=== PATIENT | male | born 1930 | race Hispanic/Latino ===

== ENCOUNTER 2016-12-09 15:08 | Inpatient (IN) | payer MEDICARE, OTHER ==
[2016-12-09] MEDS ORDERED: TYLENOL ONE (15:19)
[2016-12-09] MEDS ORDERED: TYLENOL PO ONE (15:20)
[2016-12-09 16:39] LABS: Basophils % (Auto) 0.3 % (0.0-1.8); Hematocrit 44.3 % (35.5-45.6); Hemoglobin 14.9 gm/dl (11.8-15.2); Mean Corpuscular HGB Conc 34 % (32-34); Mean Corpuscular Hemoglobin 31 pg (28-32); Mean Corpuscular Volume 91 fl (84-94); Red Blood Count 4.86 M/mm3 (3.65-5.03); Red Cell Distribution Width 14.2 % (13.2-15.2); White Blood Count 3.7 K/mm3 (4.5-11.0)
[2016-12-09 16:59] LABS: BUN/Creatinine Ratio 25.83; Potassium 3.8 mmol/L (3.6-5.0)
[2016-12-09 17:28] LABS: Platelet Count 87 K/mm3 (140-440)
--- NOTE | 2016-12-09 22:05 | Emergency Department Report ---
HPI - General Chief Complaint: Weakness Time Seen by Provider: 12/09/16 21:49 - HPI HPI: This is a 86-year-old male who presents to the emergency department with his sons with complaint of a 3-4 day history of progressively worsening weakness, decreased appetite, and falls. The patient presents with a very low- grade fever but there is been no complaints of any fever, chills. The patient is usually ambulatory but has not been able to walk since Friday due to the weakness. The patient himself has no complaints of any discomfort. He has a history of Parkinson's, diabetes, GERD, hypertension and has a defibrillator. The patient's primary care doctor and solar applications development engineer are both through the [facility]. No recent travel or sick contacts at home. No history of DC, CVA, PE /DVT. ED Past Medical Hx - Past Medical History Hx Hypertension: Yes Hx Diabetes: Yes Hx GERD: Yes Additional medical history: Parkinsons - Surgical History Hx Internal Defibrillator: Yes - Medications Home Medications: Home Medications Medication Instructions Recorded Confirmed Last Taken Type Carbidopa-Levo 25-100 mg Odt 12/10/16 Unknown History Cyanocobalamin 1,000 mg 12/10/16 Unknown History Docusate Sodium 12/10/16 Unknown History Lisinopril 12/10/16 Unknown History Metoprolol 12/10/16 Unknown History Omeprazole-Bicarb 20-1,100 Cap 12/10/16 Unknown History ED Review of Systems ROS: Stated complaint: WEAKNESS Other details as noted in HPI Comment: All other systems reviewed and negative Constitutional: fever, weakness Eyes: denies: eye pain, eye discharge, vision change ENT: denies: ear pain, throat pain Respiratory: denies: cough, shortness of breath, wheezing Cardiovascular: denies: chest pain, palpitations Genitourinary: denies: urgency, dysuria Musculoskeletal: denies: back pain, joint swelling, arthralgia Skin: denies: rash, lesions Neurological: weakness. denies: numbness, paresthesias Physical Exam - Physical Exam Vital Signs: Vital Signs 12/09/16 12/09/16 15:21 15:28 Temperature 100.4 F H Pulse Rate 65 Respiratory 20 20 Rate Blood Pressure 140/90 O2 Sat by Pulse 96 Oximetry Physical Exam: GENERAL: The patient is well-developed well-nourished. HEENT: Normocephalic. Atraumatic. Extraocular motions are intact. Patient has dry mucous membranes. Pupils equal reactive to light bilaterally. NECK: Supple. Trachea is midline. CHEST/LUNGS: Clear to auscultation. There is no respiratory distress noted. HEART/CARDIOVASCULAR: Regular. There is no tachycardia. There is no gallop rub or murmur. ABDOMEN: Abdomen is soft, nontender. Patient has normal bowel sounds. There is no abdominal distention. SKIN: There is no rash. There is no edema. There is no diaphoresis. NEURO: The patient is awake, alert, and oriented. The patient is cooperative. The patient has no focal neurologic deficits. The patient has normal speech. There is a left upper extremity tremor. MUSCULOSKELETAL: There is no tenderness or deformity. There is no evidence of acute injury. Patient displays some generalized weakness. ED Course Vital Signs 12/09/16 12/09/16 15:21 15:28 Temperature 100.4 F H Pulse Rate 65 Respiratory 20 20 Rate Blood Pressure 140/90 O2 Sat by Pulse 96 Oximetry ED Medical Decision Making - Lab Data Result diagrams: 12/09/16 16:26 12/09/16 16:26 - EKG Data -: EKG Interpreted by Vt EKG shows normal: sinus rhythm, axis, intervals (wide QRS), QRS complexes (LBBB) , ST-T waves Rate: normal - EKG Data When compared to previous EKG there are: changes noted (new LBBB, but previous EKG from 2010) Interpretation: other (wide QRS, LBBB) - Radiology Data Radiology results: report reviewed, image reviewed interpreted by me: Chest x-ray did not show any acute process. Heart is normal shape and size. No effusions. No pneumothorax. No signs of pneumonia seen. CT of the head without contrast shows involutional changes but otherwise no acute intracranial process. - Medical Decision Making 86-year-old male with history of Parkinson's presents to the emergency department after he began having weakness to the point where he could no longer walk, which she was able to do as of a few days ago. Patient's EKG did not show any signs of ST elevation DC but does show a left bundle-branch block, which was not there on his last EKG, however the last EKG was over 5 years ago. Patient's first troponin was elevated at 0.061 and went up to 0.064. It is only 2 times above normal range but may be a sign as to why the patient is having weakness as it could be NSTEMI versus other etiology. Patient does have a history of GI bleed so he was not started on any heparin at this time but was given an aspirin. Patient will be admitted to hospital for further evaluation and has been accepted for admission by the hospitalist, Dr. Mendez. - Differential Diagnosis DC, CVA, hypothyroidism, Parkinson's Critical Care Time: No Critical care attestation.: If time is entered above; I have spent that time in minutes in the direct care of this critically ill patient, excluding procedure time. ED Disposition Clinical Impression: Parkinson disease, Elevated troponin, Weakness, Inability to walk Disposition: OP ADMITTED IP TO THIS HOSP Is pt being admited?: Yes Does the pt Need Aspirin: Yes Condition: Stable Time of Disposition: 22:58
[2016-12-09] MEDS ORDERED: NACL 0.9% 1000 ML 1,000 ML IV ONE (22:11)
[2016-12-09] MEDS ORDERED: NACL 0.9% 500 ML 500 ML IV ONE (22:11)
--- NOTE | 2016-12-09 22:54 | Cat Scan Report ---
FINAL REPORT PROCEDURE: CT HEAD/BRAIN WO CON TECHNIQUE: Computerized tomography of the head was performed without contrast material. HISTORY: weakness COMPARISON: No prior studies are available for comparison. FINDINGS: Skull and scalp: Normal. Paranasal sinuses: Normal. Ventricles and subarachnoid spaces: There is advanced central and cortical atrophy. There is no hydrocephalus or asymmetry.. Cerebrum: No evidence of hemorrhage, acute infarction or mass . Cerebellum and brainstem: No evidence of hemorrhage, acute infarction or mass. Vasculature: There is calcified intracranial atherosclerosis.. Comments: There is chronic deep white matter ischemic gliosis.. IMPRESSION: There are chronic involutional changes. The there is no acute intracranial abnormality.
[2016-12-09] MEDS ORDERED: ECOTRIN PO ONE (22:59)
[2016-12-09] MEDS ORDERED: HEPARIN SUB-Q SCH (23:00)
[2016-12-10 05:11] LABS: Bacteria,Urine 1+ /HPF (Negative); Bilirubin,Urine NEG (Negative); Blood,Urine LG (Negative); Ketones,Urine NEG (Negative); Leukocyte Esterase,Urine TR (Negative); Mucus,Urine FEW /HPF; Nitrite,Urine NEG (Negative)
[2016-12-10 05:12] LABS: RBC,Urine > 182.0 /HPF (0.0-6.0)
[2016-12-10] MEDS ORDERED: SODIUM CHLORIDE FLUSH SYRINGE 10 ML IV PRN (06:34)
--- NOTE | 2016-12-10 06:34 | Event Note ---
Date: 12/09/16 NSTEMI HTN UTI ARF Parkinson's disease
[2016-12-10] MEDS ORDERED: NON-FORMULARY (Metoprolol 50 MG) PO SCH (06:45)
[2016-12-10 08:17] LABS: Creatine Kinase MB 3.8 ng/mL (0.0-4.0)
--- NOTE | 2016-12-10 08:19 | XRay Report ---
AP chest x-ray. Findings: The heart is mildly enlarged with normal pulmonary vascularity. The lungs are clear. There is no pleural fluid. A cardiac pacemaker is noted. Arthritic changes are seen in the right shoulder joint and a.c. joint. Impression: Cardiomegaly with no acute findings.
[2016-12-10] MEDS ORDERED: LEXISCAN IV ONE ×2 (09:04→09:08)
[2016-12-10] MEDS ORDERED: NON-FORMULARY (Lisinopril 10 MG) PO SCH (10:00)
[2016-12-10] MEDS ORDERED: LOVENOX SUB-Q SCH (10:00)
--- NOTE | 2016-12-10 11:05 | Admit Criteria Form ---
Admission Criteria Documentation: MYOCARDIAL INFARCTION Clinical Indications for Admission to Inpatient Care (Place 'X' for any and all applicable criteria): Admission is indicated for ANY ONE of the following (1)(2)(3)(4): [ ]I. Acute IN [X]II. Contraindications and/or Inappropriate clinical situations for Observational Care in patients with Myocardial Infarction, when ANY ONE of the following is required: [ ]a) Patient with High risk of cardiac embolism (e.g, patients with previous cardiac embolism, LVEF < 40%, age >75 and patients with prosthetic valve) 18 [X]b) Patient with Moderate risk including DM patient, CAD and patient aged 65-75 18 [X]c) Patient with any change in cardiac biomarker especially troponin should be managed as high risk in an inpatient setting 19 [ ]d) Physician judgement irrespective of ECG and other diagnostic findings 20 [X]III.General contraindications and/or Inappropriate clinical situations for Observational Care in patients with Myocardial Infarction, when ANY ONE of the following is required: [X]a) Prediction of prolongation of LOS based on ANY ONE of the following may be considered as a contraindication for observational care 2, 3, 4, 5, 6, 7, 8, 9, 10, 11 [X]i) Age > 65 yrs. [ ]ii) Patient arriving by ambulance [ ]iii) Patient with high acuity [ ]iv) Patient requiring vital sign monitoring [ ]v) Patient on IV medication [ ]b) Systolic blood pressures 180mmHg 3,12 [ ]c) Patient with altered mental status including delirium and other alteration of consciousness, (3) [ ]d) Patient whose discharge disposition will be to a snf home or rehabilitation home should not be managed in Emergency Department Observation Unit. CMS rule requires 3 days hospital stay before such placement. 3,13 [ ]e) Patient with failure to thrive due to broad array of etiologies 3 ,16,17 [ ]f) Inability to ambulate 3,14 Extended stay beyond goal length of stay may be needed for (1)(18)(20)(24)(25): [ ]a) Hemodynamic instability, persisting symptoms after intensive medical management, or recurring severe, prolonged symptoms [ ]b) Intravascular procedural complications such as acute vessel closure, stent thrombosis, stent malposition, or vessel dissection (26)(27)(28) [ ]c) Extravascular procedural complications such as retroperitoneal hematoma , pericardial effusion, or cardiac tamponade [ ]d) Entry site complications causing bleeding, hematoma or distal ischemia and requiring ongoing monitoring, surgical repair or surgical thrombectomy(29) [ ]e) Dangerous arrhythmia [ ]f) Complicated percutaneous coronary intervention (e.g., unsuccessful percutaneous coronary intervention or percutaneous coronary intervention of non- [place] vessel) [ ]g) Urgent or emergent surgery for complications of IN (e.g., ventricular rupture, valvular insufficiency) [ ]h) Surgical revascularization via coronary artery bypass graft [ ]i) Heart failure (e.g., pulmonary edema) [ ]j) Unstable pulmonary comorbidities, including COPD or pneumonia (31) [ ]k) Acute renal failure The original [employer] content created by [employer] has been revised. The portions of the content which have been revised are identified through the use of italic text or in bold, and [facility] has neither reviewed nor approved the modified material. All other unmodified content is copyright [facility] Please see references footnoted in the original [facility] edition 2016 Admission Criteria Met: Yes
[2016-12-10 12:49] LABS: Hematocrit 44.8 % (35.5-45.6)
[2016-12-10 12:55] LABS: INR 1.11 (0.87-1.13); Partial Thromboplastin Time 30.4 Sec. (24.2-36.6)
[2016-12-10] MEDS: NOVOLOG SUB-Q SCH ×4 (13:02→22:18)
[2016-12-10 13:17] LABS: Creatine Kinase MB 3.1 ng/mL (0.0-4.0)
[2016-12-10] MEDS: ZESTRIL PO SCH (13:49)
[2016-12-10] MEDS: ROCEPHIN/NS 2 GM/100 ML 2 GM/100 ML BAG IV SCH (13:50)
[2016-12-10] MEDS: LOPRESSOR PO SCH ×2 (13:50→21:40)
--- NOTE | 2016-12-10 15:01 | Consultation ---
History of Present Illness Consult date: 12/10/16 Requesting physician: CELESTE JENNINGS Consult reason: atrial fibrillation, elevated troponin Medications and Allergies Allergies Allergy/AdvReac Type Severity Reaction Status Date / Time No Known Allergies Allergy Unverified 12/09/16 15:33 Home Medications Medication Instructions Recorded Confirmed Last Taken Type Carbidopa-Levo 25-100 mg Odt 12/10/16 Unknown History Cyanocobalamin 1,000 mg 12/10/16 Unknown History Docusate Sodium 12/10/16 Unknown History Lisinopril 12/10/16 Unknown History Metoprolol 12/10/16 Unknown History Omeprazole-Bicarb 20-1,100 Cap 12/10/16 Unknown History Active Meds: Active Medications Ceftriaxone Sodium (Rocephin/Ns 2 Gm/100 Ml) 2 gm in 100 mls @ 200 mls/hr IV Q24HR ISAIAH PRN Reason: Protocol Last Admin: 12/10/16 13:50 Dose: 200 mls/hr Heparin Sodium/Sodium Chloride (Heparin/ 0.45% Nacl-25,000 Unit/500 Ml) 25,000 unit in 500 mls @ 20 mls/hr IV TITRATE ISAIAH; 1,000 UNITS/HR PRN Reason: Protocol Insulin Aspart (Novolog) 0 units SUB-Q ACHS ISAIAH PRN Reason: Protocol Last Admin: 12/10/16 13:02 Dose: Not Given Lisinopril (Zestril) 10 mg PO QDAY [facility] Last Admin: 12/10/16 13:49 Dose: 10 mg Metoprolol Tartrate (Lopressor) 50 mg PO Q12HR [facility] Last Admin: 12/10/16 13:50 Dose: 50 mg Sodium Chloride (Sodium Chloride Flush Syringe 10 Ml) 10 ml IV PRN PRN PRN Reason: LINE FLUSH Physical Examination Vital Signs Resp 20 12/09/16 15:21 Results 12/10/16 12:06 12/09/16 16:26 Cardiac Enzymes 12/10/16 12/10/16 Range/Units 06:58 12:06 CK-MB (CK-2) 3.8 3.1 (0.0-4.0) ng/mL Coagulation 12/10/16 Range/Units 12:06 PT 14.2 (12.2-14.9) Sec. INR 1.11 (0.87-1.13) APTT 30.4 (24.2-36.6) Sec. CBC 12/10/16 Range/Units 12:06 Hgb 15.0 (11.8-15.2) gm/dl Hct 44.8 (35.5-45.6) % Plt Count 79 L (140-440) K/mm3
[2016-12-10] MEDS ORDERED: APRESOLINE IV PRN (16:12)
--- NOTE | 2016-12-10 16:50 | Consultation ---
History of Present Illness Consult date: 12/10/16 Consult reason: elevated troponin History of present illness: This is an 86yr old male who presented with weakness and decreased appetite. Patient has a history of Parkinson's. He began having weakness 4 days ago and now no longer able to walk. Patient admitted for further workup and evaluation. Cardiac consultation requested for mild rise of troponin. Cardiac enzymes shows a CK of 2221 with a normal CK/MB of 3.1, consistent with acute rhabdomyolysis. Troponin of 0.05, mildly elevated. Patient denies chest pain and shortness of breath. There was no dizziness or syncope. Patient had a persantine stress thallium today with results pending. Patient is known to [facility] and sees Dr Jackman. He has a cardiac history nonischemic cardiomyopathy with an indwelling cardiac defibrillator in place. Routine COUNSELING CASE MANAGER-D interrogations have revealed normal device function with chronic BI-V pacing. No appropirate or inappropirate device therapies noted. His latest cardiac workup done 5 yrs ago. He underwent a cardiac cath that reports no significant coronary disease, ejection fraction 15%. Medications and Allergies Allergies Allergy/AdvReac Type Severity Reaction Status Date / Time No Known Allergies Allergy Unverified 12/09/16 15:33 Home Medications Medication Instructions Recorded Confirmed Last Taken Type Carbidopa-Levo 25-100 mg Odt 12/10/16 Unknown History Cyanocobalamin 1,000 mg 12/10/16 Unknown History Docusate Sodium 12/10/16 Unknown History Lisinopril 12/10/16 Unknown History Metoprolol 12/10/16 Unknown History Omeprazole-Bicarb 20-1,100 Cap 12/10/16 Unknown History Active Meds: Active Medications Ceftriaxone Sodium (Rocephin/Ns 2 Gm/100 Ml) 2 gm in 100 mls @ 200 mls/hr IV Q24HR ISAIAH PRN Reason: Protocol Last Admin: 12/10/16 13:50 Dose: 200 mls/hr Heparin Sodium/Sodium Chloride (Heparin/ 0.45% Nacl-25,000 Unit/500 Ml) 25,000 unit in 500 mls @ 20 mls/hr IV TITRATE ISAIAH; 1,000 UNITS/HR PRN Reason: Protocol Insulin Aspart (Novolog) 0 units SUB-Q ACHS ISAIAH PRN Reason: Protocol Last Admin: 12/10/16 15:58 Dose: Not Given Lisinopril (Zestril) 10 mg PO QDAY [facility] Last Admin: 12/10/16 13:49 Dose: 10 mg Metoprolol Tartrate (Lopressor) 50 mg PO Q12HR [facility] Last Admin: 12/10/16 13:50 Dose: 50 mg Sodium Chloride (Sodium Chloride Flush Syringe 10 Ml) 10 ml IV PRN PRN PRN Reason: LINE FLUSH Physical Examination Vital Signs Resp 12/09/16 15:21 General appearance: no acute distress HEENT: Positive: PERRL Neck: Positive: trachea midline Cardiac: Positive: Reg Rate and Rhythm Lungs: Positive: Decreased Breath Sounds Results 12/10/16 12:06 12/09/16 16:26 Cardiac Enzymes 12/10/16 12/10/16 Range/Units 06:58 12:06 CK-MB (CK-2) 3.8 3.1 (0.0-4.0) ng/mL Coagulation 12/10/16 Range/Units 12:06 PT 14.2 (12.2-14.9) Sec. INR 1.11 (0.87-1.13) APTT 30.4 (24.2-36.6) Sec. CBC 12/10/16 Range/Units 12:06 Hgb 15.0 (11.8-15.2) gm/dl Hct 44.8 (35.5-45.6) % Plt Count 79 L (140-440) K/mm3 Assessment and Plan Weakness -presenting complaint Rhabdomyolysis Mild rise of troponin, nonspecific thallium results pending Hx of Parkinson's disease Hx of Nonischemic cardiomyopathy EF 30-35% on echo 2012 Presence of AICD
[2016-12-10] MEDS: HEPARIN/ 0.45% NACL-25,000 UNIT/500 ML 25,000 UNIT/500 ML BAG IV SCH (17:14)
--- NOTE | 2016-12-10 20:09 | Progress Note ---
Assessment and Plan 1. Frequent falls: Likely secondary to worsening Parkinson's disease. 2. Rhabdomyolysis: Combination of Parkinson disease and 24's. 3. Dilated cardiomyopathy with ejection fraction of 20-25%. Had cardiac cath. He is ago that showed normal coronaries. Ejection fraction was 20 - 25%. Medical management per software quality analyst with aspirin and atorvastatin and lisinopril and spironolactone Commissioner for continuous 4 and because his disease 4. DVT prophylaxis with Lovenox and GI with Protonix. Subjective Date of service: 12/10/16 Principal diagnosis: frequent falls, nonischemic cardiomyopathy Interval history: Denies any chest pain or shortness of breath. No recent falls. Objective - Constitutional Vitals: Vital Signs - 12hr 12/10/16 12/10/16 12/10/16 09:14 09:40 09:41 Temperature Pulse Rate 102 H 96 H 104 H Pulse Rate [ Left] Respiratory Rate Blood Pressure 115/75 115/75 121/78 Blood Pressure [Left Arm] O2 Sat by Pulse Oximetry 12/10/16 12/10/16 12/10/16 09:42 09:43 09:44 Temperature Pulse Rate 100 H 93 H 101 H Pulse Rate [ Left] Respiratory Rate Blood Pressure 104/73 101/68 108/68 Blood Pressure [Left Arm] O2 Sat by Pulse Oximetry 12/10/16 12/10/16 12/10/16 12:40 13:49 13:50 Temperature 98.2 F Pulse Rate 90 Pulse Rate [ 90 Left] Respiratory 18 Rate Blood Pressure 158/60 158/60 Blood Pressure 158/60 [Left Arm] O2 Sat by Pulse 97 Oximetry 12/10/16 16:31 Temperature 98.5 F Pulse Rate Pulse Rate [ 90 Left] Respiratory 18 Rate Blood Pressure Blood Pressure 143/83 [Left Arm] O2 Sat by Pulse 97 Oximetry General appearance: Present: no acute distress - EENT Eyes: PERRL, EOM intact ENT: hearing intact, clear oral mucosa Ears: bilateral: normal - Neck Neck: supple, normal ROM - Respiratory Respiratory effort: normal Respiratory: bilateral: diminished - Cardiovascular Rhythm: regular Heart Sounds: Present: S1 & S2. Absent: gallop, rub Extremities: pulses intact, No edema, normal color, Full ROM - Gastrointestinal General gastrointestinal: Present: soft, non-tender, non-distended - Integumentary Integumentary: clear, warm, dry - Musculoskeletal Musculoskeletal: 1, strength equal bilaterally - Neurologic Neurologic: moves all extremities - Psychiatric Psychiatric: memory intact, appropriate mood/affect, intact judgment & insight - Labs CBC & Chem 7: 12/10/16 12:06 12/09/16 16:26 Labs: Abnormal lab results 12/09/16 12/10/16 12/10/16 Range/Units Unknown 06:58 12:06 Plt Count (140-440) K/mm3 Total Creatine Kinase 2211 H 1695 H (55-170) units/L Troponin T 0.050 H D 0.050 H (0.00-0.029) ng/mL Urine WBC (Auto) 15.0 H (0.0-6.0) /HPF 12/10/16 Range/Units 12:06 Plt Count 79 L (140-440) K/mm3 Total Creatine Kinase (55-170) units/L Troponin T (0.00-0.029) ng/mL Urine WBC (Auto) (0.0-6.0) /HPF
[2016-12-10] MEDS ORDERED: COZAAR PO SCH (22:00)
--- NOTE | 2016-12-10 22:34 | History and Physical Report ---
CHIEF COMPLAINT: Weakness for 4 days. HISTORY OF PRESENT ILLNESS: An 86-year-old male presents with weakness of 3-4 days' duration. Decreased appetite and falls. Also, the patient presents with low grade fever. The patient is ambulatory, but has not been able to walk due to weakness since 4 days. The patient does not have any complaints, but the complaint is from the children. He has history of Parkinson disease, diabetes, gastroesophageal reflux disease, hypertension, and patient also has a defibrillator. No chest pain. He goes to the [facility] for his primary care and Cardiology followup. No recent travels. No shortness of breath. The main complaint is weakness in the legs, making him fall. PAST MEDICAL HISTORY: Significant for hypertension, diabetes, gastroesophageal reflux disease, Parkinson disease. SURGICAL HISTORY: Internal defibrillator. CURRENT MEDICATIONS: Sinemet 25/100 t.i.d., cyanocobalamin 1000 mg daily, lisinopril 10 mg daily, metoprolol 50 mg q.12, omeprazole b.i.d. FAMILY HISTORY: Significant for hypertension. REVIEW OF SYSTEMS: Significant for weakness in lower extremities resulting in fall. CONSTITUTIONAL: No fever, no chills. No weight loss. No weight gain. HEENT: No sore throat, no postnasal drip. CARDIOVASCULAR AND RESPIRATORY SYSTEMS: No shortness of breath, no chest pain, no palpitations. GASTROINTESTINAL: No nausea, no vomiting, no diarrhea. GENITOURINARY SYSTEM: No dysuria, no flank pain. MUSCULOSKELETAL SYSTEM: Has positive muscle weakness present resulting in falls. CENTRAL NERVOUS SYSTEM: No syncope, no seizures. secondary to Parkinson's. SKIN: Normal. No rash. A 14-point review of systems was done, essentially otherwise negative. PHYSICAL EXAMINATION: GENERAL: Elderly male, cooperative during examination. VITAL SIGNS: Temperature 100.4, blood pressure is 140/90, pulse is 65, respirations are 20. HEENT: Slightly dry mucous membranes. NECK: Supple, no lymphadenopathy, no thyromegaly. LUNGS: Clear to auscultation and percussion. Good air entry. CARDIOVASCULAR: S1, S2 heard. No gallop, no murmur, no rub. Apical impulse is in the left fifth intercostal space and midclavicular line. ABDOMEN: Soft and benign. No hepatosplenomegaly. No guarding, no rigidity. EXTREMITIES: Good pedal pulses. No pedal edema. CENTRAL NERVOUS SYSTEM: Alert and oriented x 4. Nonfocal exam. SKIN: Normal. LABORATORY DATA: Significant for white count of 3700, hemoglobin is 14.9, hematocrit is 44.3, platelet count is 87. Glucose is 129, BUN and creatinine 31 and 1.2. First 2 troponins are 0.061 and 0.064. CK not available. TSH is 4.57. Urine shows white count of 15. EKG shows normal sinus rhythm, normal axis intervals, no acute ST-T wave changes. Left bundle branch block which is new. CT of the head shows no acute intracranial process. Chest x-ray did not show any acute process. ASSESSMENT AND PLAN: 1. NSTEMI because of elevated troponins. CPK not available. I will treat it as NSTEMI and Cardiology consult requested. IV heparin started. 2. Myopathy, the patient has muscle weakness. I will wait for CPK. May be secondary to Parkinson disease. Also, statins as a cause should be ruled out. The patient's medication profile does not include any statins. 3. Hypertension. Continue lisinopril and metoprolol. 4. Parkinsonism. Continue Sinemet 25/100 t.i.d. 5. Deep venous thrombosis prophylaxis, Lovenox 40 mg subQ daily. 6. Prerenal azotemia. The patient is dehydrated. We will continue IV fluids. 7. Urinary tract infection, IV Rocephin 2 g IV piggyback q.24. JOB# [id number] VSM/NTS
--- NOTE | 2016-12-11 01:42 | Treadmill Report ---
PROCEDURE: Single-isotope dual study myocardial perfusion scan. REFERRING PHYSICIAN: José Mendez MD DESCRIPTION OF PROCEDURE: The patient received 10 mCi of technetium 99m Myoview intravenously under resting conditions. Resting myocardial perfusion scan was done. Subsequently, the patient underwent Lexiscan stress test as per the protocol. During Lexiscan stress test, the patient received 28 mCi of technetium 99m Myoview intravenously. After 30-60 minutes, post stress images were done. Computerized reconstruction images were performed. The post-stress images revealed moderately dilated left ventricle. Small to moderate sized inferior/inferobasal perfusion defect was seen. Cinematic display of the gated study revealed severe global left ventricular systolic dysfunction with LVEF around 27%. The resting images again revealed the perfusion defect seen in the stress images. CONCLUSION: 1. Moderately dilated left ventricle. 2. Small to moderate sized fixed inferior/inferobasal perfusion defect of moderate size. 3. Severe global left ventricular hypokinesia. 4. Severe left ventricular systolic dysfunction with LVEF around 27%. [facility]# [id number] [facility]
[2016-12-11 07:39] LABS: Hematocrit 40.1 % (35.5-45.6); Hemoglobin 13.3 gm/dl (11.8-15.2); Mean Corpuscular HGB Conc 33 % (32-34); Mean Corpuscular Hemoglobin 30 pg (28-32); Mean Corpuscular Volume 92 fl (84-94); Red Blood Count 4.36 M/mm3 (3.65-5.03); Red Cell Distribution Width 14.3 % (13.2-15.2)
[2016-12-11 07:47] LABS: Platelet Count 76 K/mm3 (140-440); White Blood Count 2.3 K/mm3 (4.5-11.0)
[2016-12-11 07:59] LABS: Albumin 2.8 g/dL (3.9-5); BUN/Creatinine Ratio 33.33; Bilirubin,Total 0.4 mg/dL (0.1-1.2); Calcium 7.6 mg/dL (8.4-10.2); Chloride 96.8 mmol/L (98-107); Potassium 3.3 mmol/L (3.6-5.0); Total Protein 5.7 g/dL (6.3-8.2)
[2016-12-11] MEDS ORDERED: CARBIDOPA LEVO PO SCH (08:00)
[2016-12-11 08:47] LABS: Basophils % (Manual) 0 % (0.0-1.8); Blastocytes % (Manual) 0 %; Eosinophils % (Manual) 0 % (0.0-4.3)
[2016-12-11 08:50] LABS: Diff Status Complete; Elliptocytes Few; Ovalocytes Few; Platelet Estimate Appears Decreased
--- NOTE | 2016-12-11 09:30 | Progress Note ---
Assessment and Plan Weakness Rhabdomyolysis consistent with his worsening Parkinson's symptoms. 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 Presence of AICD EKG was a multifocal atrial tachycardia heart with underlying left bundle branch block. Echocardiogram confirmed his underlying cardiomyopathy, with a left ventricle ejection fraction of 20-25%, and moderate mitral regurgitation. Persantine thallium done this admission showed a dilated cardiomyopathy with a small to moderate, fixed basal inferior and basal posterior lateral defect. There was no reversible ischemia. Recommendations: Neurological assessment and management of Parkinson's Medical therapy for underlying nonischemic cardiomyopathy. Subjective Date of service: 12/11/16 Principal diagnosis: frequent falls, nonischemic cardiomyopathy Interval history: Patient resting in bed comfortably. Objective Vital Signs Temp Pulse Pulse Resp BP BP Pulse Ox 12/11/16 04:00 98.2 F 75 18 170/78 98 12/11/16 01:40 97.4 F L 74 20 110/68 94 12/10/16 23:10 90 12/10/16 20:00 98.6 F 92 H 19 116/59 97 12/10/16 16:31 98.5 F 90 18 143/83 97 12/10/16 13:50 158/60 12/10/16 13:49 90 158/60 12/10/16 12:40 98.2 F 90 18 158/60 97 12/10/16 09:44 101 H 108/68 12/10/16 09:43 93 H 101/68 12/10/16 09:42 100 H 104/73 12/10/16 09:41 104 H 121/78 12/10/16 09:40 96 H 115/75 - Physical Examination General: No Apparent Distress HEENT: Positive: PERRL Neck: Positive: trachea midline Cardiac: Positive: Other (paced) - Labs and Meds Cardiac Enzymes 12/10/16 12/11/16 Range/Units 12:06 07:16 AST 63 H (5-40) units/L CK-MB (CK-2) 3.1 (0.0-4.0) ng/mL Coagulation 12/10/16 Range/Units 12:06 PT 14.2 (12.2-14.9) Sec. INR 1.11 (0.87-1.13) APTT 30.4 (24.2-36.6) Sec. CBC 12/10/16 12/11/16 Range/Units 12:06 07:16 WBC 2.3 L (4.5-11.0) K/mm3 RBC 4.36 (3.65-5.03) M/mm3 Hgb 15.0 13.3 (11.8-15.2) gm/dl Hct 44.8 40.1 (35.5-45.6) % Plt Count 79 L 76 L (140-440) K/mm3 Comprehensive Metabolic Panel 12/11/16 Range/Units 07:16 Sodium 137 (137-145) mmol/L Potassium 3.3 L (3.6-5.0) mmol/L Chloride 96.8 L (98-107) mmol/L Carbon Dioxide 25 (22-30) mmol/L BUN 40 H (9-20) mg/dL Creatinine 1.2 (0.8-1.5) mg/dL Glucose 80 (75-100) mg/dL Calcium 7.6 L (8.4-10.2) mg/dL AST 63 H (5-40) units/L ALT 27 (7-56) units/L Alkaline Phosphatase 83 (35-129) units/L Total Protein 5.7 L (6.3-8.2) g/dL Albumin 2.8 L (3.9-5) g/dL
[2016-12-11] MEDS: NOVOLOG SUB-Q SCH ×4 (09:52→22:40)
[2016-12-11] MEDS ORDERED: NORVASC PO SCH (10:00)
[2016-12-11] MEDS: ROCEPHIN/NS 2 GM/100 ML 2 GM/100 ML BAG IV SCH (10:46)
[2016-12-11] MEDS: LOPRESSOR PO SCH ×2 (10:47→23:06)
[2016-12-11] MEDS: ZESTRIL PO SCH (10:47)
--- NOTE | 2016-12-11 20:56 | Progress Note ---
Assessment and Plan 1. Frequent falls: Likely secondary to worsening Parkinson's disease. 2. Rhabdomyolysis: Combination of Parkinson disease falls. 3. Dilated cardiomyopathy with ejection fraction of 20-25%. Had cardiac cath. 2011 showed no significant coronaries. Medical management per intake nurse with aspirin and atorvastatin and lisinopril and spironolactone 4. Hypokalemia: will supplement. 5. DVT prophylaxis with Lovenox and GI with Protonix. Subjective Date of service: 12/11/16 Principal diagnosis: frequent falls, nonischemic cardiomyopathy Interval history: Denies any chest pain or shortness of breath. No recent falls. No overnight event Objective - Constitutional Vitals: Vital Signs - 12hr 12/11/16 12/11/16 12/11/16 09:52 10:47 18:18 Temperature 97.9 F 97.8 F Pulse Rate 68 Pulse Rate [ 74 Left] Pulse Rate [ 61 Right] Respiratory 18 18 Rate Blood Pressure 135/65 131/65 [Left Arm] O2 Sat by Pulse 95 96 Oximetry General appearance: Present: no acute distress, mild distress, other ( pleasantly confused) - EENT Eyes: PERRL ENT: hearing intact, clear oral mucosa Ears: bilateral: normal - Neck Neck: supple, normal ROM - Respiratory Respiratory effort: normal Respiratory: bilateral: CTA - Breasts Breasts: normal - Cardiovascular Rhythm: regular Heart Sounds: Present: S1 & S2. Absent: gallop, rub Extremities: pulses intact, No edema, normal color, Full ROM - Gastrointestinal General gastrointestinal: Present: soft, non-tender, non-distended, normal bowel sounds - Genitourinary Male genitourinary: normal - Integumentary Integumentary: clear, warm, dry - Musculoskeletal Musculoskeletal: 1, strength equal bilaterally - Neurologic Neurologic: moves all extremities - Psychiatric Psychiatric: memory intact, appropriate mood/affect, intact judgment & insight - Labs CBC & Chem 7: 12/11/16 07:16 12/11/16 07:16 Labs: Abnormal lab results 12/10/16 12/10/16 12/10/16 Range/Units 20:32 21:15 23:56 WBC (4.5-11.0) K/mm3 Plt Count (140-440) K/mm3 Seg Neuts % (Manual) (40.0-70.0) % Lymphocytes % (Manual) (13.4-35.0) % Lymphocytes # (Manual) (1.2-5.4) K/mm3 Heparin Anti-Xa Level 0.23 L (0.3-0.7) U.I./ml Potassium (3.6-5.0) mmol/L Chloride (98-107) mmol/L BUN (9-20) mg/dL POC Glucose 252 H (70-105) Calcium (8.4-10.2) mg/dL AST (5-40) units/L Total Creatine Kinase 1315 H (55-170) units/L Total Protein (6.3-8.2) g/dL Albumin (3.9-5) g/dL 12/11/16 12/11/16 Range/Units 07:16 07:16 WBC 2.3 L (4.5-11.0) K/mm3 Plt Count 76 L (140-440) K/mm3 Seg Neuts % (Manual) 86.0 H (40.0-70.0) % Lymphocytes % (Manual) 7.0 L (13.4-35.0) % Lymphocytes # (Manual) 0.2 L (1.2-5.4) K/mm3 Heparin Anti-Xa Level (0.3-0.7) U.I./ml Potassium 3.3 L (3.6-5.0) mmol/L Chloride 96.8 L (98-107) mmol/L BUN 40 H (9-20) mg/dL POC Glucose (70-105) Calcium 7.6 L (8.4-10.2) mg/dL AST 63 H (5-40) units/L Total Creatine Kinase (55-170) units/L Total Protein 5.7 L (6.3-8.2) g/dL Albumin 2.8 L (3.9-5) g/dL
[2016-12-11] MEDS: HEPARIN/ 0.45% NACL-25,000 UNIT/500 ML 25,000 UNIT/500 ML BAG IV SCH (23:05)
[2016-12-11] MEDS: K-DUR PO SCH (23:06)
[2016-12-11] MEDS: SINEMET PO SCH (23:06)
[2016-12-12 06:00] LABS: Hematocrit 39.1 % (35.5-45.6); Hemoglobin 12.8 gm/dl (11.8-15.2)
[2016-12-12 06:27] LABS: Albumin 2.7 g/dL (3.9-5); Alkaline Phosphatase 105 units/L (35-129); Anion Gap 22 mmol/L; BUN/Creatinine Ratio 31.81; Bilirubin,Total 0.4 mg/dL (0.1-1.2); Blood Urea Nitrogen 35 mg/dL (9-20); Calcium 7.6 mg/dL (8.4-10.2); Carbon Dioxide 22 mmol/L (22-30); Chloride 96.8 mmol/L (98-107); Glucose 85 mg/dL (75-100); Potassium 3.7 mmol/L (3.6-5.0); Sodium 137 mmol/L (137-145); Total Protein 5.4 g/dL (6.3-8.2)
[2016-12-12 07:38] LABS: Alanine Aminotransferase < 5 units/L (7-56)
[2016-12-12] MEDS: SINEMET PO SCH ×3 (08:29→22:54)
[2016-12-12] MEDS: NOVOLOG SUB-Q SCH ×4 (08:33→22:54)
[2016-12-12] MEDS: K-DUR PO SCH (09:53)
[2016-12-12] MEDS: ZESTRIL PO SCH (09:56)
[2016-12-12] MEDS: LOPRESSOR PO SCH ×2 (09:56→22:54)
[2016-12-12] MEDS: ROCEPHIN/NS 2 GM/100 ML 2 GM/100 ML BAG IV SCH (11:55)
--- NOTE | 2016-12-12 12:52 | Progress Note ---
Assessment and Plan Weakness Rhabdomyolysis consistent with his worsening Parkinson's symptoms. 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 Presence of AICD EKG was a multifocal atrial tachycardia heart with underlying left bundle branch block. Echocardiogram confirmed his underlying cardiomyopathy, with a left ventricle ejection fraction of 20-25%, and moderate mitral regurgitation. Persantine thallium done this admission showed a dilated cardiomyopathy with a small to moderate, fixed basal inferior and basal posterior lateral defect. There was no reversible ischemia. Recommendations: Neurological assessment and management of Parkinson's Medical therapy for underlying nonischemic cardiomyopathy. Subjective Date of service: 12/12/16 Principal diagnosis: frequent falls, nonischemic cardiomyopathy Interval history: Patient resting in bed comfortably. No cardiac events overnight. Son at bedside. Objective Vital Signs Temp Pulse Pulse Pulse Resp BP BP 12/12/16 11:34 99.0 F 66 20 12/12/16 09:56 76 137/64 12/12/16 08:24 92 H 12/12/16 08:13 97.5 F L 63 20 137/64 12/12/16 05:33 98.3 F 64 20 142/68 12/12/16 00:10 98.1 F 63 20 143/66 12/11/16 21:09 98.7 F 69 20 130/61 12/11/16 18:18 97.8 F 61 18 131/65 BP Pulse Ox 12/12/16 11:34 122/58 94 12/12/16 09:56 12/12/16 08:24 12/12/16 08:13 92 12/12/16 05:33 92 12/12/16 00:10 95 12/11/16 21:09 92 12/11/16 18:18 96 - Physical Examination General: No Apparent Distress HEENT: Positive: PERRL Neck: Positive: trachea midline Cardiac: Positive: Other (paced) Lungs: Positive: Decreased Breath Sounds - Labs and Meds Cardiac Enzymes 12/12/16 Range/Units 05:04 AST 57 H (5-40) units/L CBC 12/12/16 Range/Units 05:04 Hgb 12.8 (11.8-15.2) gm/dl Hct 39.1 (35.5-45.6) % Plt Count 77 L (140-440) K/mm3 Comprehensive Metabolic Panel 12/12/16 Range/Units 05:04 Sodium 137 (137-145) mmol/L Potassium 3.7 (3.6-5.0) mmol/L Chloride 96.8 L (98-107) mmol/L Carbon Dioxide 22 (22-30) mmol/L BUN 35 H (9-20) mg/dL Creatinine 1.1 (0.8-1.5) mg/dL Glucose 85 (75-100) mg/dL Calcium 7.6 L (8.4-10.2) mg/dL AST 57 H (5-40) units/L ALT < 5 L (7-56) units/L Alkaline Phosphatase 105 (35-129) units/L Total Protein 5.4 L (6.3-8.2) g/dL Albumin 2.7 L (3.9-5) g/dL
--- NOTE | 2016-12-12 17:02 | Progress Note ---
Assessment and Plan 1. Frequent falls: Likely secondary to worsening Parkinson's disease. 2. Rhabdomyolysis: Combination of Parkinson disease and falls. Total CK improving. D/c pt some. Placement in a SNF required 3. Dilated cardiomyopathy with ejection fraction of 20-25%: Medical management with ASA, atorvastatin, Lisinopril and Spironolactone per cadiologist. 4. Hypokalemia: Corrected. 5. DVT prophylaxis with Lovenox and GI with Protonix. Subjective Date of service: 12/12/16 Principal diagnosis: frequent falls, nonischemic cardiomyopathy Interval history: No overnight events, no new complaints. Objective - Constitutional Vitals: Vital Signs - 12hr 12/12/16 12/12/16 12/12/16 05:33 08:13 08:24 Temperature 98.3 F 97.5 F L Pulse Rate 92 H Pulse Rate [ 64 63 Left] Pulse Rate [ Right] Respiratory 20 20 Rate Blood Pressure Blood Pressure 142/68 137/64 [Left Arm] Blood Pressure [Right Arm] O2 Sat by Pulse 92 92 Oximetry 12/12/16 12/12/16 12/12/16 09:56 11:34 16:09 Temperature 99.0 F 99.5 F Pulse Rate 76 Pulse Rate [ 63 Left] Pulse Rate [ 66 Right] Respiratory 20 18 Rate Blood Pressure 137/64 Blood Pressure 110/60 [Left Arm] Blood Pressure 122/58 [Right Arm] O2 Sat by Pulse 94 94 Oximetry General appearance: Present: no acute distress, well-nourished - EENT Eyes: PERRL, EOM intact ENT: hearing intact, clear oral mucosa Ears: bilateral: normal - Neck Neck: supple, normal ROM - Respiratory Respiratory effort: normal Respiratory: bilateral: CTA - Breasts Breasts: normal - Cardiovascular Rhythm: regular Heart Sounds: Present: S1 & S2. Absent: gallop, rub Extremities: pulses intact, No edema, normal color, Full ROM - Gastrointestinal General gastrointestinal: Present: soft, non-tender, non-distended, normal bowel sounds - Genitourinary Male genitourinary: normal - Integumentary Integumentary: clear, warm, dry - Musculoskeletal Musculoskeletal: 1, strength equal bilaterally - Neurologic Neurologic: moves all extremities - Psychiatric Psychiatric: memory intact, appropriate mood/affect, intact judgment & insight - Labs CBC & Chem 7: 12/12/16 05:04 12/12/16 05:04 Labs: Abnormal lab results 12/11/16 12/12/16 12/12/16 Range/Units 20:14 05:04 05:04 Plt Count 77 L (140-440) K/mm3 Chloride 96.8 L (98-107) mmol/L BUN 35 H (9-20) mg/dL POC Glucose (70-105) Calcium 7.6 L (8.4-10.2) mg/dL AST 57 H (5-40) units/L ALT < 5 L (7-56) units/L Total Creatine Kinase 680 H (55-170) units/L Total Protein 5.4 L (6.3-8.2) g/dL Albumin 2.7 L (3.9-5) g/dL 12/12/16 12/12/16 Range/Units 10:47 15:24 Plt Count (140-440) K/mm3 Chloride (98-107) mmol/L BUN (9-20) mg/dL POC Glucose 147 H 113 H (70-105) Calcium (8.4-10.2) mg/dL AST (5-40) units/L ALT (7-56) units/L Total Creatine Kinase (55-170) units/L Total Protein (6.3-8.2) g/dL Albumin (3.9-5) g/dL
[2016-12-12] MEDS: HEPARIN/ 0.45% NACL-25,000 UNIT/500 ML 25,000 UNIT/500 ML BAG IV SCH (22:57)
[2016-12-13] MEDS: NOVOLOG SUB-Q SCH ×3 (08:30→21:55)
--- NOTE | 2016-12-13 10:47 | Discharge Summary ---
Providers - Providers Date of Admission: 12/09/16 22:59 Date of discharge: 12/13/16 Attending physician: SHEREEN GO MD 12/10/16 Consult to Cardiac Rehabilitation [CONS] Routine Reason For Exam: Phase I Primary care physician: CRUZ PLAZA MD Hospitalization Condition: Stable Disposition: DC/TX SNF W [facility] Time spent for discharge: 35 mins Exam - Constitutional Vitals: Temp Pulse Resp BP Pulse Ox 98.1 F 60 20 131/62 94 12/13/16 07:41 12/13/16 07:41 12/13/16 07:41 12/13/16 07:41 12/13/16 07:41 Plan Activity: advance as tolerated, fall precautions Diet: low fat Special Instructions: record daily BP diary, record blood sugar diary Additional Instructions: Follow with cardiology in 1 week Follow up with: PRIMARY CARE, [Primary Care Provider] - 3-5 Days Prescriptions: Carbidopa/Levodopa 25-100 [Sinemet 25/100] 1 each PO TID #90 tablet Lisinopril [Zestril TAB] 10 mg PO QDAY #30 tablet Metoprolol [Lopressor TAB] 50 mg PO Q12HR #60 tablet Potassium Chloride [K-Dur] 20 meq PO QDAY #10 tablet
[2016-12-13] MEDS: K-DUR PO SCH (12:10)
[2016-12-13] MEDS: LOPRESSOR PO SCH ×2 (12:10→21:54)
[2016-12-13] MEDS: SINEMET PO SCH ×2 (12:11→21:53)
[2016-12-13] MEDS: ROCEPHIN/NS 2 GM/100 ML 2 GM/100 ML BAG IV SCH (12:12)
[2016-12-13] MEDS: ZESTRIL PO SCH (12:14)
[2016-12-13] MEDS ORDERED: NACL 0.9% 500 ML 500 ML IV ONE (14:37)
--- NOTE | 2016-12-13 14:56 | Progress Note ---
Assessment and Plan Assessment and plan: Patient is a 86 year old male with history of Parkinson disease admitted with 3 -4 days of generalized weakness and low grade fever. Also with us sugar frequent falls. In the hospital patient was noted to have elevated CPK consistent with rhabdomyolysis. Also noted that the traversing had progressive weakness poor appetite. No infectious pathology was identified. 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 Cardiology recommended no aggressive invasive treatments. Echocardiogram done on this admission showed an EF of 20-25% with moderate mitral regurgitation. [facility] but the patient became dizzy and clammy on physical therapy evaluation. Prompted a hold of the discharge. 1. Frequent falls: Likely secondary to worsening Parkinson's disease. 2. Orthostatic hypotension-we'll give bolus of 500 mL of fluids. Patient normal saline at 100 mL an hour findings of 500. We'll monitor for any development of fever. We'll repeat blood counts. 3. Rhabdomyolysis: Combination of Parkinson disease and falls. Total CK improving. Placement in a SNF required 4. Dilated cardiomyopathy with ejection fraction of 20-25%: Medical management with ASA, atorvastatin, Lisinopril and Spironolactone per cadiologist. 5. Hypokalemia: Corrected. 6. DVT prophylaxis with Lovenox and GI with Protonix. 7. Reevaluate in a.m. if improved, discharged to skilled muscle facility. When developed she'll follow up with cardiology I did discuss with the son in detail and also the patient they do follow-up at the NH. History Interval history: Patient seen and examined this morning in no acute distress. But reports generalized weakness bilateral lower extremities. According to patient and her family has not got up from bed since has been admitted. Denies any chest pain, nausea, vomiting, diarrhea No fever noted blood pressure controlled No adverse events reported to me by nursing staff Hospitalist Physical - Physical exam Narrative exam: VITAL SIGNS: Reviewed. GENERAL: The patient appeared well nourished and normally developed. essential tremor. Vital signs as documented. HEAD: No signs of head trauma. EYES: Pupils are equal. Extraocular motions intact. EARS: Hearing grossly intact. MOUTH: Oropharynx is normal. NECK: No adenopathy, no JVD. CHEST: Chest with clear breath sounds bilaterally. No wheezes, rales, or rhonchi. CARDIAC: Regular rate and rhythm. S1 and S2, without murmurs, gallops, or rubs. VASCULAR: No Edema. Peripheral pulses normal and equal in all extremities. ABDOMEN: Soft, without detectable tenderness. No sign of distention. No rebound or guarding, and no masses palpated. Bowel Sounds normal. MUSCULOSKELETAL: Gait not accessed. awaiting PT. passive range of motion did not produce resistance. Extremities without clubbing, cyanosis or edema. NEUROLOGIC EXAM: Alert and oriented x 3. No focal sensory or strength deficits. Speech normal. Follows commands. PSYCHIATRIC: Mood normal. SKIN: No rash or lesions. - Constitutional Vitals: Temp Pulse Resp BP Pulse Ox 97.8 F 60 20 131/62 95 12/13/16 12:04 12/13/16 12:14 12/13/16 12:04 12/13/16 12:14 12/13/16 12:04 General appearance: Present: no acute distress, well-nourished Results - Labs CBC & Chem 7: 12/12/16 05:04 12/12/16 05:04 Labs: Laboratory Last Values WBC 2.3 K/mm3 (4.5-11.0) L 12/11/16 07:16 RBC 4.36 M/mm3 (3.65-5.03) 12/11/16 07:16 Hgb 12.8 gm/dl (11.8-15.2) 12/12/16 05:04 Hct 39.1 % (35.5-45.6) 12/12/16 05:04 MCV 92 fl (84-94) 12/11/16 07:16 MCH 30 pg (28-32) 12/11/16 07:16 MCHC 33 % (32-34) 12/11/16 07:16 RDW 14.3 % (13.2-15.2) 12/11/16 07:16 Plt Count 77 K/mm3 (140-440) L 12/12/16 05:04 Lymph % (Auto) 5.2 % (13.4-35.0) L 12/09/16 16:26 [place] % (Auto) 8.0 % (0.0-7.3) H 12/09/16 16:26 Eos % (Auto) 0.0 % (0.0-4.3) 12/09/16 16:26 Baso % (Auto) 0.3 % (0.0-1.8) 12/09/16 16:26 Lymph # 0.2 K/mm3 (1.2-5.4) L 12/09/16 16:26 [place] # 0.3 K/mm3 (0.0-0.8) 12/09/16 16:26 Eos # 0.0 K/mm3 (0.0-0.4) 12/09/16 16:26 Baso # 0.0 K/mm3 (0.0-0.1) 12/09/16 16:26 Add Manual Diff Complete 12/11/16 07:16 Total Counted 100 12/11/16 07:16 Seg Neutrophils % 86.5 % (40.0-70.0) H 12/09/16 16:26 Seg Neuts % (Manual) 86.0 % (40.0-70.0) H 12/11/16 07:16 Band Neutrophils % 6.0 % 12/11/16 07:16 Lymphocytes % (Manual) 7.0 % (13.4-35.0) L 12/11/16 07:16 Reactive Lymphs % (Man) 0 % 12/11/16 07:16 Monocytes % (Manual) 1.0 % (0.0-7.3) 12/11/16 07:16 Eosinophils % (Manual) 0 % (0.0-4.3) 12/11/16 07:16 Basophils % (Manual) 0 % (0.0-1.8) 12/11/16 07:16 Metamyelocytes % 0 % 12/11/16 07:16 Myelocytes % 0 % 12/11/16 07:16 Promyelocytes % 0 % 12/11/16 07:16 Blast Cells % 0 % 12/11/16 07:16 Nucleated RBC % Not Reportable 12/11/16 07:16 Seg Neutrophils # 3.2 K/mm3 (1.8-7.7) 12/09/16 16:26 Seg Neutrophils # Man 2.0 K/mm3 (1.8-7.7) 12/11/16 07:16 Band Neutrophils # 0.1 K/mm3 12/11/16 07:16 Lymphocytes # (Manual) 0.2 K/mm3 (1.2-5.4) L 12/11/16 07:16 Abs React Lymphs (Man) 0.0 K/mm3 12/11/16 07:16 Monocytes # (Manual) 0.0 K/mm3 (0.0-0.8) 12/11/16 07:16 Eosinophils # (Manual) 0.0 K/mm3 (0.0-0.4) 12/11/16 07:16 Basophils # (Manual) 0.0 K/mm3 (0.0-0.1) 12/11/16 07:16 Metamyelocytes # 0.0 K/mm3 12/11/16 07:16 Myelocytes # 0.0 K/mm3 12/11/16 07:16 Promyelocytes # 0.0 K/mm3 12/11/16 07:16 Blast Cells # 0.0 K/mm3 12/11/16 07:16 WBC Morphology Not Reportable 12/11/16 07:16 Hypersegmented Neuts Not Reportable 12/11/16 07:16 Hyposegmented Neuts Not Reportable 12/11/16 07:16 Hypogranular Neuts Not Reportable 12/11/16 07:16 Smudge Cells Not Reportable 12/11/16 07:16 Toxic Granulation Not Reportable 12/11/16 07:16 Toxic Vacuolation Not Reportable 12/11/16 07:16 Dohle Bodies Not Reportable 12/11/16 07:16 Pelger-Huet Anomaly Not Reportable 12/11/16 07:16 Koko Rods Not Reportable 12/11/16 07:16 Platelet Estimate Appears decreased 12/11/16 07:16 Clumped Platelets Not Reportable 12/11/16 07:16 Plt Clumps, EDTA Not Reportable 12/11/16 07:16 Large Platelets Not Reportable 12/11/16 07:16 Giant Platelets Not Reportable 12/11/16 07:16 Platelet Satelliting Not Reportable 12/11/16 07:16 Plt Morphology Comment Not Reportable 12/11/16 07:16 RBC Morphology Not Reportable 12/11/16 07:16 Dimorphic RBCs Not Reportable 12/11/16 07:16 Polychromasia Not Reportable 12/11/16 07:16 Hypochromasia Not Reportable 12/11/16 07:16 Poikilocytosis Not Reportable 12/11/16 07:16 Anisocytosis Not Reportable 12/11/16 07:16 Microcytosis Not Reportable 12/11/16 07:16 Macrocytosis Not Reportable 12/11/16 07:16 Spherocytes Not Reportable 12/11/16 07:16 Pappenheimer Bodies Not Reportable 12/11/16 07:16 Sickle Cells Not Reportable 12/11/16 07:16 Target Cells Not Reportable 12/11/16 07:16 Tear Drop Cells Not Reportable 12/11/16 07:16 Ovalocytes Few 12/11/16 07:16 Helmet Cells Not Reportable 12/11/16 07:16 [place] Bodies Not Reportable 12/11/16 07:16 [place] Rings Not Reportable 12/11/16 07:16 [place] Cells Not Reportable 12/11/16 07:16 Bite Cells Not Reportable 12/11/16 07:16 Crenated Cell Not Reportable 12/11/16 07:16 Elliptocytes Few 12/11/16 07:16 Acanthocytes (Spur) Not Reportable 12/11/16 07:16 Rouleaux Not Reportable 12/11/16 07:16 Hemoglobin C Crystals Not Reportable 12/11/16 07:16 Schistocytes Not Reportable 12/11/16 07:16 Malaria parasites Not Reportable 12/11/16 07:16 Gene Bodies Not Reportable 12/11/16 07:16 Hem Pathologist Commnt No 12/11/16 07:16 PT 14.2 Sec. (12.2-14.9) 12/10/16 12:06 INR 1.11 (0.87-1.13) 12/10/16 12:06 APTT 30.4 Sec. (24.2-36.6) 12/10/16 12:06 Heparin Anti-Xa Level 0.38 U.I./ml (0.3-0.7) 12/13/16 12:07 Sodium 137 mmol/L (137-145) 12/12/16 05:04 Potassium 3.7 mmol/L (3.6-5.0) 12/12/16 05:04 Chloride 96.8 mmol/L (98-107) L 12/12/16 05:04 Carbon Dioxide 22 mmol/L (22-30) 12/12/16 05:04 Anion Gap 22 mmol/L 12/12/16 05:04 BUN 35 mg/dL (9-20) H 12/12/16 05:04 Creatinine 1.1 mg/dL (0.8-1.5) 12/12/16 05:04 Estimated GFR > 60 ml/min 12/12/16 05:04 BUN/Creatinine Ratio 31.81 % 12/12/16 05:04 Glucose 85 mg/dL (75-100) 12/12/16 05:04 POC Glucose 107 (70-105) H 12/13/16 11:41 Calcium 7.6 mg/dL (8.4-10.2) L 12/12/16 05:04 Total Bilirubin 0.4 mg/dL (0.1-1.2) 12/12/16 05:04 AST 57 units/L (5-40) H 12/12/16 05:04 ALT < 5 units/L (7-56) L 12/12/16 05:04 Alkaline Phosphatase 105 units/L (35-129) 12/12/16 05:04 Total Creatine Kinase 401 units/L (55-170) H 12/12/16 20:20 CK-MB (CK-2) 3.1 ng/mL (0.0-4.0) 12/10/16 12:06 CK-MB (CK-2) Rel Index 0.1 (0-4) 12/10/16 12:06 Troponin T 0.050 ng/mL (0.00-0.029) H 12/10/16 12:06 Total Protein 5.4 g/dL (6.3-8.2) L 12/12/16 05:04 Albumin 2.7 g/dL (3.9-5) L 12/12/16 05:04 Albumin/Globulin Ratio 1.0 % 12/12/16 05:04 Triglycerides 167 mg/dL (2-149) H 12/09/16 16:26 Cholesterol 165 mg/dL (50-199) 12/09/16 16:26 LDL Cholesterol Direct 91 mg/dL (50-130) 12/09/16 16:26 HDL Cholesterol 41 mg/dL (40-59) 12/09/16 16:26 Cholesterol/HDL Ratio 4.02 % 12/09/16 16:26 TSH 4.570 mlU/mL (0.270-4.200) H 12/09/16 22:40 Thyroxine (T4) 7.2 ug/dL (4.0-12.0) 12/10/16 20:32 Urine Color Maty (Yellow) 12/09/16 Unknown Urine Turbidity Slightly-cloudy (Clear) 12/09/16 Unknown Urine pH 5.0 (5.0-7.0) 12/09/16 Unknown Ur Specific [place] 1.020 (1.003-1.030) 12/09/16 Unknown Urine Protein 100 mg/dl mg/dL (Negative) 12/09/16 Unknown Urine Glucose (UA) Neg mg/dL (Negative) 12/09/16 Unknown Urine Ketones Neg mg/dL (Negative) 12/09/16 Unknown Urine Blood Lg (Negative) 12/09/16 Unknown Urine Nitrite Neg (Negative) 12/09/16 Unknown Urine Bilirubin Neg (Negative) 12/09/16 Unknown Urine Urobilinogen 2.0 mg/dL (<2.0) 12/09/16 Unknown Ur Leukocyte Esterase Tr (Negative) 12/09/16 Unknown Urine WBC (Auto) 15.0 /HPF (0.0-6.0) H 12/09/16 Unknown Urine RBC (Auto) > 182.0 /HPF (0.0-6.0) 12/09/16 Unknown U Epithel Cells (Auto) 2.0 /HPF (0-13.0) 12/09/16 Unknown Urine Bacteria (Auto) 1+ /HPF (Negative) 12/09/16 Unknown Urine Mucus Few /HPF 12/09/16 Unknown
[2016-12-13] MEDS: HEPARIN/ 0.45% NACL-25,000 UNIT/500 ML 25,000 UNIT/500 ML BAG IV SCH (21:56)
[2016-12-14 03:44] LABS: Hematocrit 33.2 % (35.5-45.6); Hemoglobin 10.9 gm/dl (11.8-15.2); Mean Corpuscular HGB Conc 33 % (32-34); Mean Corpuscular Hemoglobin 30 pg (28-32); Mean Corpuscular Volume 92 fl (84-94); Red Blood Count 3.61 M/mm3 (3.65-5.03); Red Cell Distribution Width 14.1 % (13.2-15.2); White Blood Count 3.3 K/mm3 (4.5-11.0)
[2016-12-14 03:45] LABS: Platelet Count 89 K/mm3 (140-440)
[2016-12-14] MEDS: NOVOLOG SUB-Q SCH ×5 (08:00→22:05)
[2016-12-14] MEDS: SINEMET PO SCH ×4 (08:20→22:03)
[2016-12-14] MEDS: K-DUR PO SCH (10:30)
[2016-12-14] MEDS: ZESTRIL PO SCH (10:30)
[2016-12-14] MEDS: LOPRESSOR PO SCH ×2 (10:30→22:03)
--- NOTE | 2016-12-14 16:13 | Progress Note ---
Assessment and Plan Assessment and plan: Patient is a 86 year old male with history of Parkinson disease admitted with 3 -4 days of generalized weakness and low grade fever. Also with us sugar frequent falls. In the hospital patient was noted to have elevated CPK consistent with rhabdomyolysis. Also noted that the traversing had progressive weakness poor appetite. No infectious pathology was identified. 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 Cardiology recommended no aggressive invasive treatments. Echocardiogram done on this admission showed an EF of 20-25% with moderate mitral regurgitation. [facility] but the patient became dizzy and clammy on physical therapy evaluation. Prompted a hold of the discharge. 1. Frequent falls: Likely secondary to worsening Parkinson's disease. 2. Orthostatic hypotension-we'll give bolus of 500 mL of fluids. Patient normal saline at 100 mL an hour findings of 500. We'll monitor for any development of fever. We'll repeat blood counts. 3. Rhabdomyolysis: Combination of Parkinson disease and falls. Total CK improving. Placement in a SNF required 4. Dilated cardiomyopathy with ejection fraction of 20-25%: Medical management with ASA, atorvastatin, Lisinopril and Spironolactone per cadiologist. 5. Hypokalemia: Corrected. 6. DVT prophylaxis with Lovenox and GI with Protonix. 7. UTI- sp Abx 7. Reevaluate in a.m. if improved, discharged to skilled muscle facility. When developed she'll follow up with cardiology I did discuss with the son in detail and also the patient they do follow-up at the [facility]. Hospitalist Physical - Constitutional Vitals: Temp Pulse Resp BP Pulse Ox 97.8 F 81 18 109/64 99 12/14/16 13:00 12/14/16 13:00 12/14/16 13:00 12/14/16 13:00 12/14/16 13:00 General appearance: Present: no acute distress, well-nourished Results - Labs CBC & Chem 7: 12/14/16 03:19 12/12/16 05:04 Labs: Laboratory Last Values WBC 3.3 K/mm3 (4.5-11.0) L 12/14/16 03:19 RBC 3.61 M/mm3 (3.65-5.03) L 12/14/16 03:19 Hgb 10.9 gm/dl (11.8-15.2) L 12/14/16 03:19 Hct 33.2 % (35.5-45.6) L 12/14/16 03:19 MCV 92 fl (84-94) 12/14/16 03:19 MCH 30 pg (28-32) 12/14/16 03:19 MCHC 33 % (32-34) 12/14/16 03:19 RDW 14.1 % (13.2-15.2) 12/14/16 03:19 Plt Count 89 K/mm3 (140-440) L 12/14/16 03:19 Lymph % (Auto) 5.2 % (13.4-35.0) L 12/09/16 16:26 [place] % (Auto) 8.0 % (0.0-7.3) H 12/09/16 16:26 Eos % (Auto) 0.0 % (0.0-4.3) 12/09/16 16:26 Baso % (Auto) 0.3 % (0.0-1.8) 12/09/16 16:26 Lymph # 0.2 K/mm3 (1.2-5.4) L 12/09/16 16:26 [place] # 0.3 K/mm3 (0.0-0.8) 12/09/16 16:26 Eos # 0.0 K/mm3 (0.0-0.4) 12/09/16 16:26 Baso # 0.0 K/mm3 (0.0-0.1) 12/09/16 16:26 Add Manual Diff Complete 12/11/16 07:16 Total Counted 100 12/11/16 07:16 Seg Neutrophils % 86.5 % (40.0-70.0) H 12/09/16 16:26 Seg Neuts % (Manual) 86.0 % (40.0-70.0) H 12/11/16 07:16 Band Neutrophils % 6.0 % 12/11/16 07:16 Lymphocytes % (Manual) 7.0 % (13.4-35.0) L 12/11/16 07:16 Reactive Lymphs % (Man) 0 % 12/11/16 07:16 Monocytes % (Manual) 1.0 % (0.0-7.3) 12/11/16 07:16 Eosinophils % (Manual) 0 % (0.0-4.3) 12/11/16 07:16 Basophils % (Manual) 0 % (0.0-1.8) 12/11/16 07:16 Metamyelocytes % 0 % 12/11/16 07:16 Myelocytes % 0 % 12/11/16 07:16 Promyelocytes % 0 % 12/11/16 07:16 Blast Cells % 0 % 12/11/16 07:16 Nucleated RBC % Not Reportable 12/11/16 07:16 Seg Neutrophils # 3.2 K/mm3 (1.8-7.7) 12/09/16 16:26 Seg Neutrophils # Man 2.0 K/mm3 (1.8-7.7) 12/11/16 07:16 Band Neutrophils # 0.1 K/mm3 12/11/16 07:16 Lymphocytes # (Manual) 0.2 K/mm3 (1.2-5.4) L 12/11/16 07:16 Abs React Lymphs (Man) 0.0 K/mm3 12/11/16 07:16 Monocytes # (Manual) 0.0 K/mm3 (0.0-0.8) 12/11/16 07:16 Eosinophils # (Manual) 0.0 K/mm3 (0.0-0.4) 12/11/16 07:16 Basophils # (Manual) 0.0 K/mm3 (0.0-0.1) 12/11/16 07:16 Metamyelocytes # 0.0 K/mm3 12/11/16 07:16 Myelocytes # 0.0 K/mm3 12/11/16 07:16 Promyelocytes # 0.0 K/mm3 12/11/16 07:16 Blast Cells # 0.0 K/mm3 12/11/16 07:16 WBC Morphology Not Reportable 12/11/16 07:16 Hypersegmented Neuts Not Reportable 12/11/16 07:16 Hyposegmented Neuts Not Reportable 12/11/16 07:16 Hypogranular Neuts Not Reportable 12/11/16 07:16 Smudge Cells Not Reportable 12/11/16 07:16 Toxic Granulation Not Reportable 12/11/16 07:16 Toxic Vacuolation Not Reportable 12/11/16 07:16 Dohle Bodies Not Reportable 12/11/16 07:16 Pelger-Huet Anomaly Not Reportable 12/11/16 07:16 [place] Rods Not Reportable 12/11/16 07:16 Platelet Estimate Appears decreased 12/11/16 07:16 Clumped Platelets Not Reportable 12/11/16 07:16 Plt Clumps, EDTA Not Reportable 12/11/16 07:16 Large Platelets Not Reportable 12/11/16 07:16 Giant Platelets Not Reportable 12/11/16 07:16 Platelet Satelliting Not Reportable 12/11/16 07:16 Plt Morphology Comment Not Reportable 12/11/16 07:16 RBC Morphology Not Reportable 12/11/16 07:16 Dimorphic RBCs Not Reportable 12/11/16 07:16 Polychromasia Not Reportable 12/11/16 07:16 Hypochromasia Not Reportable 12/11/16 07:16 Poikilocytosis Not Reportable 12/11/16 07:16 Anisocytosis Not Reportable 12/11/16 07:16 Microcytosis Not Reportable 12/11/16 07:16 Macrocytosis Not Reportable 12/11/16 07:16 Spherocytes Not Reportable 12/11/16 07:16 Pappenheimer Bodies Not Reportable 12/11/16 07:16 Sickle Cells Not Reportable 12/11/16 07:16 Target Cells Not Reportable 12/11/16 07:16 Tear Drop Cells Not Reportable 12/11/16 07:16 Ovalocytes Few 12/11/16 07:16 Helmet Cells Not Reportable 12/11/16 07:16 [place] Bodies Not Reportable 12/11/16 07:16 [place] Rings Not Reportable 12/11/16 07:16 Leandro Cells Not Reportable 12/11/16 07:16 Bite Cells Not Reportable 12/11/16 07:16 Crenated Cell Not Reportable 12/11/16 07:16 Elliptocytes Few 12/11/16 07:16 Acanthocytes (Spur) Not Reportable 12/11/16 07:16 Rouleaux Not Reportable 12/11/16 07:16 Hemoglobin C Crystals Not Reportable 12/11/16 07:16 Schistocytes Not Reportable 12/11/16 07:16 Malaria parasites Not Reportable 12/11/16 07:16 Gene Bodies Not Reportable 12/11/16 07:16 Hem Pathologist Commnt No 12/11/16 07:16 PT 14.2 Sec. (12.2-14.9) 12/10/16 12:06 INR 1.11 (0.87-1.13) 12/10/16 12:06 APTT 30.4 Sec. (24.2-36.6) 12/10/16 12:06 Heparin Anti-Xa Level 0.38 U.I./ml (0.3-0.7) 12/13/16 12:07 Sodium 137 mmol/L (137-145) 12/12/16 05:04 Potassium 3.7 mmol/L (3.6-5.0) 12/12/16 05:04 Chloride 96.8 mmol/L (98-107) L 12/12/16 05:04 Carbon Dioxide 22 mmol/L (22-30) 12/12/16 05:04 Anion Gap 22 mmol/L 12/12/16 05:04 BUN 35 mg/dL (9-20) H 12/12/16 05:04 Creatinine 1.1 mg/dL (0.8-1.5) 12/12/16 05:04 Estimated GFR > 60 ml/min 12/12/16 05:04 BUN/Creatinine Ratio 31.81 % 12/12/16 05:04 Glucose 85 mg/dL (75-100) 12/12/16 05:04 POC Glucose 158 (70-105) H 12/14/16 12:12 Calcium 7.6 mg/dL (8.4-10.2) L 12/12/16 05:04 Total Bilirubin 0.4 mg/dL (0.1-1.2) 12/12/16 05:04 AST 57 units/L (5-40) H 12/12/16 05:04 ALT < 5 units/L (7-56) L 12/12/16 05:04 Alkaline Phosphatase 105 units/L (35-129) 12/12/16 05:04 Total Creatine Kinase 211 units/L (55-170) H 12/13/16 20:59 CK-MB (CK-2) 3.1 ng/mL (0.0-4.0) 12/10/16 12:06 CK-MB (CK-2) Rel Index 0.1 (0-4) 12/10/16 12:06 Troponin T 0.050 ng/mL (0.00-0.029) H 12/10/16 12:06 Total Protein 5.4 g/dL (6.3-8.2) L 12/12/16 05:04 Albumin 2.7 g/dL (3.9-5) L 12/12/16 05:04 Albumin/Globulin Ratio 1.0 % 12/12/16 05:04 Triglycerides 167 mg/dL (2-149) H 12/09/16 16:26 Cholesterol 165 mg/dL (50-199) 12/09/16 16:26 LDL Cholesterol Direct 91 mg/dL (50-130) 12/09/16 16:26 HDL Cholesterol 41 mg/dL (40-59) 12/09/16 16:26 Cholesterol/HDL Ratio 4.02 % 12/09/16 16:26 TSH 4.570 mlU/mL (0.270-4.200) H 12/09/16 22:40 Thyroxine (T4) 7.2 ug/dL (4.0-12.0) 12/10/16 20:32 Urine Color Maty (Yellow) 12/09/16 Unknown Urine Turbidity Slightly-cloudy (Clear) 12/09/16 Unknown Urine pH 5.0 (5.0-7.0) 12/09/16 Unknown Ur Specific [place] 1.020 (1.003-1.030) 12/09/16 Unknown Urine Protein 100 mg/dl mg/dL (Negative) 12/09/16 Unknown Urine Glucose (UA) Neg mg/dL (Negative) 12/09/16 Unknown Urine Ketones Neg mg/dL (Negative) 12/09/16 Unknown Urine Blood Lg (Negative) 12/09/16 Unknown Urine Nitrite Neg (Negative) 12/09/16 Unknown Urine Bilirubin Neg (Negative) 12/09/16 Unknown Urine Urobilinogen 2.0 mg/dL (<2.0) 12/09/16 Unknown Ur Leukocyte Esterase Tr (Negative) 12/09/16 Unknown Urine WBC (Auto) 15.0 /HPF (0.0-6.0) H 12/09/16 Unknown Urine RBC (Auto) > 182.0 /HPF (0.0-6.0) 12/09/16 Unknown U Epithel Cells (Auto) 2.0 /HPF (0-13.0) 12/09/16 Unknown Urine Bacteria (Auto) 1+ /HPF (Negative) 12/09/16 Unknown Urine Mucus Few /HPF 12/09/16 Unknown
[2016-12-14] MEDS ORDERED: ZESTRIL PO SCH (16:14)
[2016-12-15] MEDS: LOPRESSOR PO SCH ×2 (09:41→21:21)
[2016-12-15] MEDS: NOVOLOG SUB-Q SCH ×4 (09:41→23:31)
[2016-12-15] MEDS: K-DUR PO SCH (09:41)
[2016-12-15] MEDS: SINEMET PO SCH ×3 (09:41→21:22)
[2016-12-15] MEDS: ZESTRIL PO SCH (09:42)
[2016-12-16] MEDS: SINEMET PO SCH ×2 (08:19→13:38)
[2016-12-16] MEDS: NOVOLOG SUB-Q SCH ×2 (09:40→12:00)
[2016-12-16] MEDS: K-DUR PO SCH (09:44)
[2016-12-16] MEDS: LOPRESSOR PO SCH (09:44)
[2016-12-16] MEDS: ZESTRIL PO SCH (09:44)
--- NOTE | 2016-12-16 10:43 | Progress Note ---
Hospitalist Physical - Constitutional Vitals: Temp Pulse Resp BP Pulse Ox 98.3 F 74 20 113/56 96 12/16/16 08:15 12/16/16 08:15 12/16/16 08:15 12/16/16 08:15 12/16/16 08:15 General appearance: Present: no acute distress, well-nourished Results - Labs CBC & Chem 7: 12/14/16 03:19 12/12/16 05:04 Labs: Laboratory Last Values WBC 3.3 K/mm3 (4.5-11.0) L 12/14/16 03:19 RBC 3.61 M/mm3 (3.65-5.03) L 12/14/16 03:19 Hgb 10.9 gm/dl (11.8-15.2) L 12/14/16 03:19 Hct 33.2 % (35.5-45.6) L 12/14/16 03:19 MCV 92 fl (84-94) 12/14/16 03:19 MCH 30 pg (28-32) 12/14/16 03:19 MCHC 33 % (32-34) 12/14/16 03:19 RDW 14.1 % (13.2-15.2) 12/14/16 03:19 Plt Count 89 K/mm3 (140-440) L 12/14/16 03:19 Lymph % (Auto) 5.2 % (13.4-35.0) L 12/09/16 16:26 [place] % (Auto) 8.0 % (0.0-7.3) H 12/09/16 16:26 Eos % (Auto) 0.0 % (0.0-4.3) 12/09/16 16:26 Baso % (Auto) 0.3 % (0.0-1.8) 12/09/16 16:26 Lymph # 0.2 K/mm3 (1.2-5.4) L 12/09/16 16:26 [place] # 0.3 K/mm3 (0.0-0.8) 12/09/16 16:26 Eos # 0.0 K/mm3 (0.0-0.4) 12/09/16 16:26 Baso # 0.0 K/mm3 (0.0-0.1) 12/09/16 16:26 Add Manual Diff Complete 12/11/16 07:16 Total Counted 100 12/11/16 07:16 Seg Neutrophils % 86.5 % (40.0-70.0) H 12/09/16 16:26 Seg Neuts % (Manual) 86.0 % (40.0-70.0) H 12/11/16 07:16 Band Neutrophils % 6.0 % 12/11/16 07:16 Lymphocytes % (Manual) 7.0 % (13.4-35.0) L 12/11/16 07:16 Reactive Lymphs % (Man) 0 % 12/11/16 07:16 Monocytes % (Manual) 1.0 % (0.0-7.3) 12/11/16 07:16 Eosinophils % (Manual) 0 % (0.0-4.3) 12/11/16 07:16 Basophils % (Manual) 0 % (0.0-1.8) 12/11/16 07:16 Metamyelocytes % 0 % 12/11/16 07:16 Myelocytes % 0 % 12/11/16 07:16 Promyelocytes % 0 % 12/11/16 07:16 Blast Cells % 0 % 12/11/16 07:16 Nucleated RBC % Not Reportable 12/11/16 07:16 Seg Neutrophils # 3.2 K/mm3 (1.8-7.7) 12/09/16 16:26 Seg Neutrophils # Man 2.0 K/mm3 (1.8-7.7) 12/11/16 07:16 Band Neutrophils # 0.1 K/mm3 12/11/16 07:16 Lymphocytes # (Manual) 0.2 K/mm3 (1.2-5.4) L 12/11/16 07:16 Abs React Lymphs (Man) 0.0 K/mm3 12/11/16 07:16 Monocytes # (Manual) 0.0 K/mm3 (0.0-0.8) 12/11/16 07:16 Eosinophils # (Manual) 0.0 K/mm3 (0.0-0.4) 12/11/16 07:16 Basophils # (Manual) 0.0 K/mm3 (0.0-0.1) 12/11/16 07:16 Metamyelocytes # 0.0 K/mm3 12/11/16 07:16 Myelocytes # 0.0 K/mm3 12/11/16 07:16 Promyelocytes # 0.0 K/mm3 12/11/16 07:16 Blast Cells # 0.0 K/mm3 12/11/16 07:16 WBC Morphology Not Reportable 12/11/16 07:16 Hypersegmented Neuts Not Reportable 12/11/16 07:16 Hyposegmented Neuts Not Reportable 12/11/16 07:16 Hypogranular Neuts Not Reportable 12/11/16 07:16 Smudge Cells Not Reportable 12/11/16 07:16 Toxic Granulation Not Reportable 12/11/16 07:16 Toxic Vacuolation Not Reportable 12/11/16 07:16 Dohle Bodies Not Reportable 12/11/16 07:16 Pelger-Huet Anomaly Not Reportable 12/11/16 07:16 Koko Rods Not Reportable 12/11/16 07:16 Platelet Estimate Appears decreased 12/11/16 07:16 Clumped Platelets Not Reportable 12/11/16 07:16 Plt Clumps, EDTA Not Reportable 12/11/16 07:16 Large Platelets Not Reportable 12/11/16 07:16 Giant Platelets Not Reportable 12/11/16 07:16 Platelet Satelliting Not Reportable 12/11/16 07:16 Plt Morphology Comment Not Reportable 12/11/16 07:16 RBC Morphology Not Reportable 12/11/16 07:16 Dimorphic RBCs Not Reportable 12/11/16 07:16 Polychromasia Not Reportable 12/11/16 07:16 Hypochromasia Not Reportable 12/11/16 07:16 Poikilocytosis Not Reportable 12/11/16 07:16 Anisocytosis Not Reportable 12/11/16 07:16 Microcytosis Not Reportable 12/11/16 07:16 Macrocytosis Not Reportable 12/11/16 07:16 Spherocytes Not Reportable 12/11/16 07:16 Pappenheimer Bodies Not Reportable 12/11/16 07:16 Sickle Cells Not Reportable 12/11/16 07:16 Target Cells Not Reportable 12/11/16 07:16 Tear Drop Cells Not Reportable 12/11/16 07:16 Ovalocytes Few 12/11/16 07:16 Helmet Cells Not Reportable 12/11/16 07:16 [place] Bodies Not Reportable 12/11/16 07:16 [place] Rings Not Reportable 12/11/16 07:16 Leandro Cells Not Reportable 12/11/16 07:16 Bite Cells Not Reportable 12/11/16 07:16 Crenated Cell Not Reportable 12/11/16 07:16 Elliptocytes Few 12/11/16 07:16 Acanthocytes (Spur) Not Reportable 12/11/16 07:16 Rouleaux Not Reportable 12/11/16 07:16 Hemoglobin C Crystals Not Reportable 12/11/16 07:16 Schistocytes Not Reportable 12/11/16 07:16 Malaria parasites Not Reportable 12/11/16 07:16 Gene Bodies Not Reportable 12/11/16 07:16 Hem Pathologist Commnt No 12/11/16 07:16 PT 14.2 Sec. (12.2-14.9) 12/10/16 12:06 INR 1.11 (0.87-1.13) 12/10/16 12:06 APTT 30.4 Sec. (24.2-36.6) 12/10/16 12:06 Heparin Anti-Xa Level 0.45 U.I./ml (0.3-0.7) 12/14/16 15:30 Sodium 137 mmol/L (137-145) 12/12/16 05:04 Potassium 3.7 mmol/L (3.6-5.0) 12/12/16 05:04 Chloride 96.8 mmol/L (98-107) L 12/12/16 05:04 Carbon Dioxide 22 mmol/L (22-30) 12/12/16 05:04 Anion Gap 22 mmol/L 12/12/16 05:04 BUN 35 mg/dL (9-20) H 12/12/16 05:04 Creatinine 1.1 mg/dL (0.8-1.5) 12/12/16 05:04 Estimated GFR > 60 ml/min 12/12/16 05:04 BUN/Creatinine Ratio 31.81 % 12/12/16 05:04 Glucose 85 mg/dL (75-100) 12/12/16 05:04 POC Glucose 118 (70-105) H 12/16/16 09:05 Calcium 7.6 mg/dL (8.4-10.2) L 12/12/16 05:04 Total Bilirubin 0.4 mg/dL (0.1-1.2) 12/12/16 05:04 AST 57 units/L (5-40) H 12/12/16 05:04 ALT < 5 units/L (7-56) L 12/12/16 05:04 Alkaline Phosphatase 105 units/L (35-129) 12/12/16 05:04 Total Creatine Kinase 211 units/L (55-170) H 12/13/16 20:59 CK-MB (CK-2) 3.1 ng/mL (0.0-4.0) 12/10/16 12:06 CK-MB (CK-2) Rel Index 0.1 (0-4) 12/10/16 12:06 Troponin T 0.050 ng/mL (0.00-0.029) H 12/10/16 12:06 Total Protein 5.4 g/dL (6.3-8.2) L 12/12/16 05:04 Albumin 2.7 g/dL (3.9-5) L 12/12/16 05:04 Albumin/Globulin Ratio 1.0 % 12/12/16 05:04 Triglycerides 167 mg/dL (2-149) H 12/09/16 16:26 Cholesterol 165 mg/dL (50-199) 12/09/16 16:26 LDL Cholesterol Direct 91 mg/dL (50-130) 12/09/16 16:26 HDL Cholesterol 41 mg/dL (40-59) 12/09/16 16:26 Cholesterol/HDL Ratio 4.02 % 12/09/16 16:26 TSH 4.570 mlU/mL (0.270-4.200) H 12/09/16 22:40 Thyroxine (T4) 7.2 ug/dL (4.0-12.0) 12/10/16 20:32 Urine Color Maty (Yellow) 12/09/16 Unknown Urine Turbidity Slightly-cloudy (Clear) 12/09/16 Unknown Urine pH 5.0 (5.0-7.0) 12/09/16 Unknown Ur Specific [place] 1.020 (1.003-1.030) 12/09/16 Unknown Urine Protein 100 mg/dl mg/dL (Negative) 12/09/16 Unknown Urine Glucose (UA) Neg mg/dL (Negative) 12/09/16 Unknown Urine Ketones Neg mg/dL (Negative) 12/09/16 Unknown Urine Blood Lg (Negative) 12/09/16 Unknown Urine Nitrite Neg (Negative) 12/09/16 Unknown Urine Bilirubin Neg (Negative) 12/09/16 Unknown Urine Urobilinogen 2.0 mg/dL (<2.0) 12/09/16 Unknown Ur Leukocyte Esterase Tr (Negative) 12/09/16 Unknown Urine WBC (Auto) 15.0 /HPF (0.0-6.0) H 12/09/16 Unknown Urine RBC (Auto) > 182.0 /HPF (0.0-6.0) 12/09/16 Unknown U Epithel Cells (Auto) 2.0 /HPF (0-13.0) 12/09/16 Unknown Urine Bacteria (Auto) 1+ /HPF (Negative) 12/09/16 Unknown Urine Mucus Few /HPF 12/09/16 Unknown
--- NOTE | 2016-12-16 10:44 | Discharge Summary ---
Providers - Providers Date of Admission: 12/09/16 22:59 Attending physician: ANGI TRACEY MD 12/10/16 Consult to Cardiac Rehabilitation [CONS] Routine Reason For Exam: Phase I 12/13/16 12:01 Physical Therapy Evaluation and Treat [CONS] Routine Comment: Reason For Exam: EVAL & TREAT Primary care physician: BARK SKINNER Hospitalization Condition: Stable Disposition: DC/[place] SNF [facility] Time spent for discharge: 35 minutes Exam - Constitutional Vitals: Temp Pulse Resp BP Pulse Ox 98.3 F 74 20 113/56 96 12/16/16 08:15 12/16/16 08:15 12/16/16 08:15 12/16/16 08:15 12/16/16 08:15 Plan Follow up with: PRIMARY CAREMD [Primary Care Provider] - 3-5 Days Prescriptions: Carbidopa/Levodopa 25-100 [Sinemet 25/100] 1 each PO TID #90 tablet Lisinopril [Zestril TAB] 10 mg PO QDAY #30 tablet Metoprolol [Lopressor TAB] 50 mg PO Q12HR #60 tablet Potassium Chloride [K-Dur] 20 meq PO QDAY #10 tablet
[2016-12-16 12:58] VITALS: BP 109/55
== END 2016-12-16 14:15 | DRG 558 ==
LOC: ED 15:08 → 4A 22:59 → UNDODISIN 12-14 16:00
PROVIDERS: ADMIT Internal Medicine; ATTEND Internal Medicine
DX: M62.82 Rhabdomyolysis (principal); N39.0 Urinary tract infection, site not specified; I42.8 Other cardiomyopathies; I42.0 Dilated cardiomyopathy; G20 Parkinson's disease; K21.9 Gastro-esophageal reflux disease without esophagitis; E11.9 Type 2 diabetes mellitus without complications; E86.0 Dehydration; I44.7 Left bundle-branch block, unspecified; I34.0 Nonrheumatic mitral (valve) insufficiency; E87.6 Hypokalemia; I95.1 Orthostatic hypotension; I10 Essential (primary) hypertension; R26.2 Difficulty in walking, not elsewhere classified; Z95.810 Presence of automatic (implantable) cardiac defibrillator; Z82.49 Family history of ischemic heart disease and other diseases of the circulatory system; Z91.81 History of falling
CPT/HCPCS: 36415; 70450; 71010; 78452; 80048; 80053; 80061; 81001; 82550; 82553; 82962; 84436; 84443; 84484; 85007; 85014; 85018; 85025; 85027; 85049; 85520; 85610; 85730; 93005; 93010; 93017; 93306; 96372; A9502; G8978-GP; G8979-GP; J0360; J0696; J1644; J1815; J2785; J7030; J7040